=== PATIENT | female | born 1980 | race Caucasian/White ===

== ENCOUNTER 2021-08-28 22:13 | Emergency (ER) | payer OTHER, SELFPAY ==
[2021-08-28 22:23] VITALS: BP 165/94; PULSE 85; RESP 16; TEMP 36.8; O2SAT 100; BMI 36.5
[2021-08-28 22:46] LABS: Add Manual Diff / Slide Review NO; Basophils Absolute Auto 100 /uL (0-100); Basophils Percent Auto 0.7 % (0-2); Eosinophils Absolute Auto 600 /uL (0-450); Eosinophils Percent Auto 5.3 % (2-4); Hematocrit 38.9 % (36-46); Hemoglobin 13.2 g/dL (12.0-16.0); Lymphocytes Absolute Auto 4300 /uL (1100-4500); Lymphocytes Percent Auto 37.3 % (25-40); Mean Corpuscular Volume 85.3 fL (80-100); Monocytes Absolute Auto 500 /uL (0-900); Monocytes Percent Auto 4.1 % (3-14); Neutrophils Absolute Auto 6100 /uL (1500-7000); Neutrophils Percent Auto 52.6 % (50-75); Platelet Count 374 X10^3/uL (150-400); Red Blood Cell Count 4.56 X10^6/uL (4.0-5.2); Red Cell Distribution Width 13.6 % (11.6-14.8); White Blood Cell Count 11.6 X10^3/uL (4.5-11.0)
[2021-08-28 22:54] LABS: Alanine Aminotransferase 21 IU/L (<35); Albumin 4.4 g/dL (3.5-5.0); Albumin Globulin Ratio 1.3 (1.0-2.8); Alkaline Phosphatase 61 U/L (38-126); Aspartate Aminotransferase 20 IU/L (14-36); BUN Creatinine Ratio 18.8 (6-22); Bilirubin Total 0.3 mg/dL (0.2-1.3); Blood Urea Nitrogen 16 mg/dL (7-17); Calcium 9.5 mg/dL (8.4-10.2); Carbon Dioxide 24 mmol/L (22-32); Chloride 105 mmol/L (98-107); Estimated Glomerular Filt Rate > 60.0 mL/min (>60); Globulin 3.4 g/dL (1.7-4.1); Glucose 113 mg/dL (70-100); HEMOLYSIS < 15 (0-50); Lipase 70 U/L (23-300); Potassium 3.7 mmol/L (3.4-5.1); Sodium 137 mmol/L (137-145); Total Protein 7.8 g/dL (6.3-8.2)
[2021-08-29 00:30] VITALS: PULSE 77; RESP 16; O2SAT 98
--- NOTE | 2021-08-29 01:10 | ED.GENADULT ---
HPI - General Adult General Chief complaint: Abdominal Pain Stated complaint: abd pain getting worse Time Seen by Provider: 08/29/21 01:10 Source: patient Mode of arrival: Ambulatory History of Present Illness HPI narrative: 41-year-old woman with a history of significant menstrual pain and cramping with a history of small polyp noted on the left ovary a number of years ago has been having increasing pelvic pain over the last 3 weeks. Access to care has been challenging and next available OBGYN is apparently scheduling into November for appointments. Pain was severe enough today that she came to the emergency room for further evaluation. She notes that her allow last menstrual cycle was August 05 which was late for her, was more erratic and more painful than usual. She describes no fevers, cough, chills, nausea or vomiting. She has not had any vaginal discharge, hematuria, flank pain, dysuria or urinary frequency. No new sexual partners recently. Related Data Allergies Allergy/AdvReac Type Severity Reaction Status Date / Time No Known Drug Allergies Allergy Verified 08/28/21 22:29 Review of Systems Review of Systems Narrative: Remainder of complete review of systems is otherwise unremarkable except for that included in the HPI. Patient History Social History Smoking Status: Never smoker Smoking Status: Never smoker alcohol intake frequency: holidays/special occasions only Substance Use Type: does not use Exam Initial Vital Signs Initial Vital Signs: Vital Signs Temperature 98.2 F 08/28/21 22:23 Pulse Rate 85 08/28/21 22:23 Respiratory Rate 16 08/28/21 22:23 Blood Pressure 165/94 H 08/28/21 22:23 Pulse Oximetry 100 08/28/21 22:23 Course Orders Ordered: ED Orders 08/28/21 22:29 EKG-12 Lead Stat 08/28/21 22:33 Complete Blood Count AUTO DIFF Stat Comprehensive Metabolic Panel Stat Lipase Stat 08/29/21 01:05 Test Urine Stat 08/29/21 01:06 Urinalysis and Microscopic Stat 08/29/21 01:24 US pelvic complete Stat Vital Signs Vital signs: Vital Signs - 8 hr 08/28/21 22:23 08/29/21 00:30 Temperature 98.2 F Pulse Rate 85 77 Respiratory Rate 16 16 Blood Pressure 165/94 H Pulse Oximetry 100 98 Medical Decision Making Lab Data Result diagrams: 08/28/21 22:33 08/28/21 22:33 Labs: Lab Results 08/28/21 08/28/21 08/28/21 Range/Units 22:33 22:33 22:34 WBC 11.6 H (4.5-11.0) X10^3/uL RBC 4.56 (4.0-5.2) X10^6/uL Hgb 13.2 (12.0-16.0) g/dL Hct 38.9 (36-46) % MCV 85.3 (80-100) fL MCH 29.0 (26-34) PG MCHC 34.0 (30-36) % RDW 13.6 (11.6-14.8) % Plt Count 374 (150-400) X10^3/uL Neut % (Auto) 52.6 (50-75) % Lymph % (Auto) 37.3 (25-40) % Laurel % (Auto) 4.1 (3-14) % Eos % (Auto) 5.3 H (2-4) % Baso % (Auto) 0.7 (0-2) % Neut # (Auto) 6100 (7355-0656) /uL Lymph # (Auto) 4300 (0984-2318) /uL Laurel # (Auto) 500 (0-900) /uL Eos # (Auto) 600 H (0-450) /uL Baso # (Auto) 100 (0-100) /uL Sodium 137 (137-145) mmol/L Potassium 3.7 (3.4-5.1) mmol/L Chloride 105 (98-107) mmol/L Carbon Dioxide 24 (22-32) mmol/L BUN 16 (7-17) mg/dL Creatinine 0.85 (0.52-1.04) mg/dL Estimated GFR > 60.0 (>60) mL/min BUN/Creatinine Ratio 18.8 (6-22) Glucose 113 H (70-100) mg/dL Calcium 9.5 (8.4-10.2) mg/dL Total Bilirubin 0.3 (0.2-1.3) mg/dL AST 20 (14-36) IU/L ALT 21 (<35) IU/L Alkaline Phosphatase 61 (38-126) U/L Total Protein 7.8 (6.3-8.2) g/dL Albumin 4.4 (3.5-5.0) g/dL Globulin 3.4 (1.7-4.1) g/dL Albumin/Globulin Ratio 1.3 (1.0-2.8) Lipase 70 (23-300) U/L Urine Color Urine Appearance Urine pH (4.5-8.0) Ur Specific Adams (1.000-1.035) Urine Protein (Negative) Urine Glucose (UA) (Negative) g/dL Urine Ketones (NEGATIVE) Urine Occult Blood (Negative) Urine Nitrate (Negative) Urine Bilirubin (NEGATIVE) Urine Urobilinogen (0.2) E.U./dL Ur Leukocyte Esterase (NEGATIVE) Urine RBC (0-5/HPF) Urine WBC (0-5/HPF) Ur Squamous Epith Cells (0-5/HPF) Urine Bacteria (None) Ur Culture Indicated? Urine Test Negative (Negative) 08/28/21 Range/Units 22:34 WBC (4.5-11.0) X10^3/uL RBC (4.0-5.2) X10^6/uL Hgb (12.0-16.0) g/dL Hct (36-46) % MCV (80-100) fL MCH (26-34) PG MCHC (30-36) % RDW (11.6-14.8) % Plt Count (150-400) X10^3/uL Neut % (Auto) (50-75) % Lymph % (Auto) (25-40) % Laurel % (Auto) (3-14) % Eos % (Auto) (2-4) % Baso % (Auto) (0-2) % Neut # (Auto) (7757-7158) /uL Lymph # (Auto) (6785-1739) /uL Laurel # (Auto) (0-900) /uL Eos # (Auto) (0-450) /uL Baso # (Auto) (0-100) /uL Sodium (137-145) mmol/L Potassium (3.4-5.1) mmol/L Chloride (98-107) mmol/L Carbon Dioxide (22-32) mmol/L BUN (7-17) mg/dL Creatinine (0.52-1.04) mg/dL Estimated GFR (>60) mL/min BUN/Creatinine Ratio (6-22) Glucose (70-100) mg/dL Calcium (8.4-10.2) mg/dL Total Bilirubin (0.2-1.3) mg/dL AST (14-36) IU/L ALT (<35) IU/L Alkaline Phosphatase (38-126) U/L Total Protein (6.3-8.2) g/dL Albumin (3.5-5.0) g/dL Globulin (1.7-4.1) g/dL Albumin/Globulin Ratio (1.0-2.8) Lipase (23-300) U/L Urine Color Yellow Urine Appearance Clear Urine pH 5.0 (4.5-8.0) Ur Specific Adams 1.025 (1.000-1.035) Urine Protein Negative (Negative) Urine Glucose (UA) Negative (Negative) g/dL Urine Ketones Negative (NEGATIVE) Urine Occult Blood 2+ H (Negative) Urine Nitrate Negative (Negative) Urine Bilirubin Negative (NEGATIVE) Urine Urobilinogen 0.2 (0.2) E.U./dL Ur Leukocyte Esterase Negative (NEGATIVE) Urine RBC 1-5/hpf (0-5/HPF) Urine WBC None seen (0-5/HPF) Ur Squamous Epith Cells 1-5 /hpf (0-5/HPF) Urine Bacteria Few (2-10) H (None) Ur Culture Indicated? Cult not indicated Urine Test (Negative) Imaging Data pelvic ultrasound: Radiologist's Impression: Anteverted uterus, normal in size 9.5 x 4.3 x 5.2 cm\69 mm endometrium Heterogeneous uterus with several fibroids -right anterior intramural fibroid with scattered calcifications 2.4 cm -left posterior fibroids, 3.2 cm and 4.1 cm Complex septated cystic structure of the right adnexa/ovary at 6.6 cm. 3.5 cm lesion within this complex structure with low level echoes Normal left ovary, no free fluid No torsion Siva Valdes MD MDM Narrative Medical decision making narrative: 41-year-old woman presents with continued pelvic pain worse over the last 3 weeks. No evidence of . Clinical history is consistent with endometriosis and pelvic ultrasound shows a complex solid cystic 6.6 cm lesion in the right adnexa with multiple uterine fibroids. No torsion, no . Patient will be referred to gynecology on-call, Dr. Barker. Will need to call for follow-up appointment and will also talk with Dr. Jaramillo to know that she is aware of findings and need for follow-up appointment. Patient does want to get and has been passively trying over the last few months. She is a currently. She also has some questions about a small cyst that she is palpated in the left outer breast. Encouraged her to review all of this with the OBGYN with her follow-up appointment. Discharge Plan Departure Patient Disposition: Home Clinical Impression: Fibroid, uterine, Adnexal cyst, Pelvic pain Instructions: DI for Uterine Fibroids, DI for Ovarian Cyst Activity Restrictions/Additional Instructions: Thank you for coming in today There are a number of explanations for the discomfort you are experiencing in your pelvis. None of these are life-threatening. You are not currently . You do not have an ectopic You do have fibroids in your uterus as well as fairly large cyst involving the right ovary. You do need to see a stone processing machine operator in follow-up. The fact that you are still hoping for a needs to be discussed with a stone processing machine operator as well. ULISSES Dawn is on-call for the emergency room [facility]. She is with [facility] and their phone number is [phone]. Please call tomorrow and let them know that you are in the emergency department, had an abnormal pelvic ultrasound, have a referral that has already been initiated and see if an appointment can be arranged. I wish you the best Referrals: Ilsa Barker MD [Physician] -
[2021-08-29 01:19] LABS: Pregnancy Test Urine Negative (Negative)
--- NOTE | 2021-08-29 01:24 | DI.US.S_ITS ---
PROCEDURE: US PELVIC COMPLETE INDICATIONS: LEFT PELVIC PAIN TECHNIQUE: Real-time scanning was performed of the pelvic organs, with image documentation. Additional endovaginal scanning was necessary due to incomplete visualization of the adnexal and endometrial structures by transabdominal scanning. COMPARISON: None. FINDINGS: Uterus: Uterus is anteverted and normal in size at 9.5 x 4.3 x 5.2 cm. The myometrium is heterogeneous containing multiple uterine fibroids. The endometrium measures 9 mm combined thickness. There is a right anterior subserosal/intramural uterine fibroid measuring 2.4 x 1.8 x 1.8 cm. There is a left posterior subserosal fibroid measuring 3.2 x 2.8 x 4.1 cm. There is another left posterior subserosal uterine fibroid measuring 4.1 x 3.5 x 4.2 cm. There also 2 additional smaller subserosal/intramural fibroids in the right side of the uterus measuring 0.9 cm and 1.2 cm respectively. Ovaries: The right ovary contains a complex septated cystic structure measuring 6.5 x 6.4 x 6.6 cm. There is a smaller 3.5 cm lesion within this complex cystic structure containing low level internal echoes. There is normal Doppler waveforms and color flow within this structure. The left ovary measures 3.3 x 1.7 x 1.9 cm. The left ovary has a normal sonographic appearance. Other: No pathologic free abdominal or pelvic fluid. IMPRESSION: 1. Complex solid and cystic 6.6 cm lesion within the right ovary/adnexa without evidence for torsion. Recommend follow-up pelvic ultrasound in 6-8 weeks document stability versus resolution. 2. Normal appearance of the left ovary. 3. Multi fibroid uterus. No significant discrepancy with the news wire photo operator radiology preliminary report. We strive to produce accurate, complete, and clear reports of imaging services. To assist us in improving patient care, this report was composed using standard report templates and voice recognition software. Therefore, it may contain abnormal punctuation, insertions and/or omissions. Occasional wrong-word or sound-alike substitutions may occur. Though we review the report and make efforts to correct it, we do recommend that the report be read carefully in proper context to recognize any text inaccuracies. Dictated by: Imer Garcia M.D. on 08/29/2021 at 8:00 Approved by: Imer Garcia M.D. on 08/29/2021 at 8:07
[2021-08-29 01:38] LABS: Appearance Urine UA CLEAR; Bilirubin Urine UA NEGATIVE (NEGATIVE); Color Urine UA YELLOW; Glucose Urine UA NEGATIVE (Negative); Ketones Urine UA NEGATIVE (NEGATIVE); Leukocyte Esterase Urine UA NEGATIVE (NEGATIVE); Nitrite Urine UA NEGATIVE (Negative); Occult Blood Urine UA 2+ (Negative); Protein Urine UA NEGATIVE (Negative); Specific Gravity Urine UA 1.025 (1.000-1.035); Urobilinogen Urine UA 0.2 E.U./dL (0.2)
[2021-08-29 01:53] LABS: RBC Urine 1-5/HPF (0-5/HPF); WBC Urine None Seen (0-5/HPF)
[2021-08-29 01:54] LABS: Bacteria Urine Few (2-10); Culture Indicated Urine Cult Not Indicated; Squamous Epithelial Cell Urine 1-5 /HPF (0-5/HPF)
[2021-08-29 03:21] VITALS: PULSE 69; RESP 16
== END 2021-08-29 03:22 | disposition home or self-care (01) ==
PROVIDERS: Emergency Provider Emergency Medicine
DX: D25.1 Intramural leiomyoma of uterus (principal); D25.2 Subserosal leiomyoma of uterus; N83.201 Unspecified ovarian cyst, right side
CPT/HCPCS: 76830; 76856; 80053; 81001; 81025; 83690; 85025; 99283

== ENCOUNTER → 2021-09-23 15:18 | Outpatient (CLI) | payer OTHER, SELFPAY ==
[2021-09-23 16:07] LABS: Add Manual Diff / Slide Review NO; Basophils Absolute Auto 0 /uL (0-100); Basophils Percent Auto 0.3 % (0-2); Eosinophils Absolute Auto 100 /uL (0-450); Eosinophils Percent Auto 0.8 % (2-4); Hemoglobin 12.9 g/dL (12.0-16.0); Lymphocytes Absolute Auto 4200 /uL (1100-4500); Lymphocytes Percent Auto 32.8 % (25-40); Mean Corpuscular HGB Conc 33.9 % (30-36); Mean Corpuscular Hemoglobin 28.7 PG (26-34); Mean Corpuscular Volume 84.6 fL (80-100); Monocytes Absolute Auto 500 /uL (0-900); Neutrophils Absolute Auto 7900 /uL (1500-7000); Neutrophils Percent Auto 62.1 % (50-75); Platelet Count 386 X10^3/uL (150-400); Red Blood Cell Count 4.49 X10^6/uL (4.0-5.2); Red Cell Distribution Width 13.4 % (11.6-14.8); White Blood Cell Count 12.8 X10^3/uL (4.5-11.0)
[2021-09-23 16:41] LABS: TSH w/ Reflex to FT4 1.57 uIU/mL (0.47-4.68)
[2021-09-23 16:47] LABS: Cancer Antigen 125 39.6 U/mL (0-35)
[2021-09-24 07:57] LABS: Rubeola Measles IgG 59.2 AU/mL (Immune >16.4); Varicella IgG Antibody 742 index (Immune >165)
[2021-09-24 13:03] LABS: Mumps Virus IgG Antibody 70.5 AU/mL (Immune >10.9)
[2021-09-25 22:52] LABS: Rubella Antibody IgG 30.1 IU/mL (>15)
== END ==
PROVIDERS: Referring Provider Obstetrics & Gynecology; Visit Provider Obstetrics & Gynecology
DX: N83.8 Other noninflammatory disorders of ovary, fallopian tube and broad ligament (principal); Z31.69 Encounter for other general counseling and advice on procreation
CPT/HCPCS: 36415; 84443; 85025; 86304; 86735; 86762; 86765; 86787

== ENCOUNTER → 2021-10-06 12:48 | Outpatient (CLI) | payer OTHER, SELFPAY ==
--- NOTE | 2021-10-06 | DI.MG.S_ITS ---
BILATERAL DIGITAL SCREENING MAMMOGRAM 3D/2D WITH CAD: 10/06/2021 CLINICAL: Routine screening. Baseline exam by default. No prior exams were available for comparison. The tissue of both breasts is heterogeneously dense. This may lower the sensitivity of mammography. Current study was also evaluated with a Computer Aided Detection (CAD) system. There is a biopsy clip in the right breast. No significant masses, calcifications, or other findings are seen in either breast. IMPRESSION: NEGATIVE There is no mammographic evidence of malignancy. A 1 year screening mammogram is recommended. This exam was interpreted at Station ID: [id number]. NOTE: For mammograms, a report in lay terms will be sent to the patient. Approximately 15% of breast malignancies will not be visualized mammographically. In the management of a palpable breast mass, a negative mammogram must not discourage biopsy of a clinically suspicious lesion. Electronically Signed By: Imer farrell/jackelyn:10/06/2021 13:37:54 letter sent: Normal Exam ACR BI-RADS Category 1: Negative [id number]
== END ==
PROVIDERS: PCP Internal Medicine; Referring Provider Internal Medicine; Visit Provider Internal Medicine
DX: Z12.31 Encounter for screening mammogram for malignant neoplasm of breast (principal)
CPT/HCPCS: 77063; 77067

== ENCOUNTER → 2021-10-30 15:51 | Outpatient (CLI) | payer OTHER, SELFPAY ==
[2021-10-30 18:38] LABS: Cancer Antigen 125 35.9 U/mL (0-35)
[2021-11-02 09:47] LABS: Human Epididymis Prot 4 50.7 pmol/L (0.0-61.2)
== END ==
PROVIDERS: PCP Internal Medicine; Referring Provider Obstetrics & Gynecology; Visit Provider Obstetrics & Gynecology
DX: N83.8 Other noninflammatory disorders of ovary, fallopian tube and broad ligament (principal)
CPT/HCPCS: 36415; 86304; 86305

== ENCOUNTER → 2022-01-07 15:21 | Outpatient (CLI) | payer OTHER, SELFPAY ==
--- NOTE | 2022-01-07 15:25 | DI.US.S_ITS ---
PROCEDURE: US PELVIC COMPLETE INDICATIONS: ADNEXAL MASS TECHNIQUE: Real-time scanning was performed of the pelvic organs, with image documentation. Additional endovaginal scanning was necessary due to incomplete visualization of the adnexal and endometrial structures by transabdominal scanning. COMPARISON: [facility], US, US PELVIC COMPLETE, 09/23/2021, 14:57. [facility], US, US PELVIC COMPLETE, 10/30/2021, 16:52. FINDINGS: Uterus: Uterus is anteverted and enlarged in size at 10.7 x 5.1 x 7.6 cm. The myometrium is heterogeneous. The endometrium measures 4.5 mm combined thickness. 2 subserosal fibroids are present, largest measuring 4.5 cm and there is a 2.2 cm intramural fibroid. Ovaries: Right ovary measures 6.0 x 5.3 x 6.6 cm and the left 5.5 x 4.4 x 4.7 cm. Simple cyst involves the right ovary measuring 4.3 x 2.9 x 5.8 cm. Complex right ovarian cyst is also seen with fine low level internal echoes measuring 3.3 x 2.0 x 2.6 cm. There are 2 simple cyst involving the left ovary, largest measuring 3.7 x 2.5 x 1.3 cm. Complex left ovarian cyst containing fine low level internal echoes measuring 3.1 x 1.8 x 2.4 cm. Other: No pathologic free abdominal or pelvic fluid. IMPRESSION: 1. Three uterine fibroids, largest measuring up to 4.5 cm. 2. Bilateral simple and complex ovarian cysts as described and measured above. Differential for the complex cysts would include endometriomas or hemorrhagic cysts, less likely neoplasm. Continued imaging follow-up can be obtained to assess for interval change or resolution, consider an interval of 6-8 weeks or at clinical discretion. We strive to produce accurate, complete, and clear reports of imaging services. To assist us in improving patient care, this report was composed using standard report templates and voice recognition software. Therefore, it may contain abnormal punctuation, insertions and/or omissions. Occasional wrong-word or sound-alike substitutions may occur. Though we review the report and make efforts to correct it, we do recommend that the report be read carefully in proper context to recognize any text inaccuracies. Dictated by: Ramón RAMIREZ Interpreted: Branden Yepez MD on 01/07/2022 at 16:37 Approved by: Branden Yepez M.D. on 01/07/2022 at 20:09
== END ==
PROVIDERS: PCP Internal Medicine; Referring Provider Obstetrics & Gynecology; Visit Provider Obstetrics & Gynecology
DX: D25.1 Intramural leiomyoma of uterus (principal); D25.2 Subserosal leiomyoma of uterus; N83.291 Other ovarian cyst, right side; N83.292 Other ovarian cyst, left side; N94.89 Other specified conditions associated with female genital organs and menstrual cycle; R19.00 Intra-abdominal and pelvic swelling, mass and lump, unspecified site; R97.1 Elevated cancer antigen 125 [CA 125]
CPT/HCPCS: 76830; 76856

== ENCOUNTER → 2022-01-10 10:15 | Outpatient (CLI) | payer OTHER, SELFPAY ==
[2022-01-10 12:11] LABS: Cancer Antigen 125 73.6 U/mL (0-35)
== END ==
PROVIDERS: PCP Internal Medicine; Referring Provider Obstetrics & Gynecology; Visit Provider Obstetrics & Gynecology
DX: R97.1 Elevated cancer antigen 125 [CA 125] (principal)
CPT/HCPCS: 36415; 86304

== ENCOUNTER → 2022-04-08 06:54 | Outpatient (CLI) | payer OTHER, SELFPAY ==
--- NOTE | 2022-04-08 | DI.US.S_ITS ---
PROCEDURE: US PELVIC COMPLETE INDICATIONS: ADNEXAL MASS TECHNIQUE: Real-time scanning was performed of the pelvic organs, with image documentation. Additional endovaginal scanning was necessary due to incomplete visualization of the adnexal and endometrial structures by transabdominal scanning. COMPARISON: [facility], US, US PELVIC COMPLETE, 01/07/2022, 15:28. FINDINGS: Uterus: 8.8 x 5.4 by low 8.5 centimeters. The endometrium is within normal limits for age measuring 11 millimeters. Numerous fibroids are present, largest measuring up to 3 centimeters. These fibroids mostly intramural. Ovaries: The right ovarian volume is 158 cc. The left ovarian volume is 32 cc. Multiple simple and minimally complex cysts are present, measuring up to 5.9 centimeters in the right ovary and 4.4 centimeters in the left ovary. Complex left ovarian cyst seen previously is not definitely visualized today. Color and spectral doppler: flows are documented Other: No pathologic fluid. IMPRESSION: Multiple uterine fibroids, mostly intramural. Multiple simple and minimally complex ovarian cysts as above. Absence of the previously seen complicated cyst on previous ultrasound and changing sizes are reassuring that that these are probably not fixed masses/cystic neoplasms. However, given large-size today, follow-up ultrasound is recommended again in 8-12 weeks. Alternatively, MRI could be pursued. We strive to produce accurate, complete, and clear reports of imaging services. To assist us in improving patient care, this report was composed using standard report templates and voice recognition software. Therefore, it may contain abnormal punctuation, insertions and/or omissions. Occasional wrong-word or sound-alike substitutions may occur. Though we review the report and make efforts to correct it, we do recommend that the report be read carefully in proper context to recognize any text inaccuracies. Dictated by: Josh Metzger M.D. on 04/08/2022 at 15:16 Approved by: Josh Metzger M.D. on 04/08/2022 at 15:23
[2022-04-08 09:01] LABS: Cancer Antigen 125 35.9 U/mL (0-35)
== END ==
PROVIDERS: PCP Internal Medicine; Referring Provider Obstetrics & Gynecology; Visit Provider Obstetrics & Gynecology
DX: D25.1 Intramural leiomyoma of uterus (principal); N94.89 Other specified conditions associated with female genital organs and menstrual cycle; R19.00 Intra-abdominal and pelvic swelling, mass and lump, unspecified site; R97.1 Elevated cancer antigen 125 [CA 125]; N83.292 Other ovarian cyst, left side; N83.291 Other ovarian cyst, right side
CPT/HCPCS: 36415; 76830; 76856; 86304; 93975

== ENCOUNTER → 2022-08-04 14:09 | Outpatient (CLI) | payer OTHER, SELFPAY ==
--- NOTE | 2022-08-04 | DI.US.S_ITS ---
PROCEDURE: US PELVIC COMPLETE INDICATIONS: DUB TECHNIQUE: Real-time scanning was performed of the pelvic organs, with image documentation. Additional endovaginal scanning was necessary due to incomplete visualization of the adnexal and endometrial structures by transabdominal scanning. COMPARISON: [facility], US, US PELVIC COMPLETE, 04/08/2022, 7:04. FINDINGS: Uterus: Uterus is anteverted and normal in size at 12.0 x 5.4 x 6.5 cm. The myometrium is heterogeneous, containing numerous intramural fibroids. The largest fibroid measures 3.5 cm. The endometrium measures 7 mm combined thickness. Ovaries: The right ovary measures 7.1 x 5.1 x 6.2 cm, with a calculated ovarian volume of 118 cc. The left ovary measures 5.4 x 5.7 x 6.1 cm, with a calculated ovarian volume of 89 cc. The ovaries have a normal sonographic appearance. Bilateral ovarian cystic lesions are again seen. The dominant right ovarian cyst measures 5.7 x 4.0 x 4.0 cm, without internal complexity. There is a cystic lesion with low-level internal echogenicity measuring 3.2 x 2.1 x 2.8 cm. Additionally, there is a left ovarian cystic lesion with thin internal septation measuring 5.1 x 4.3 x 4.5 cm; this previously measured 4.4 x 2.7 by 2.9 cm. Other: No pathologic free abdominal or pelvic fluid. IMPRESSION: 1. Slight interval growth of the left ovarian cystic lesion with thin internal septation, still likely benign. However, there has been interval development of a right ovarian cystic lesion with low-level internal echogenicity measuring 3.2 x 2.1 x 2.8 cm. Given pelvic pain and presence of new cyst, recommend additional follow-up in 6-12 weeks to ensure resolution. 2. Myomatous uterus. We strive to produce accurate, complete, and clear reports of imaging services. To assist us in improving patient care, this report was composed using standard report templates and voice recognition software. Therefore, it may contain abnormal punctuation, insertions and/or omissions. Occasional wrong-word or sound-alike substitutions may occur. Though we review the report and make efforts to correct it, we do recommend that the report be read carefully in proper context to recognize any text inaccuracies. Dictated by: Gregorio Chilel M.D. on 08/04/2022 at 16:07 Approved by: Gregorio Chilel M.D. on 08/04/2022 at 16:13
== END ==
PROVIDERS: PCP Internal Medicine; Referring Provider Obstetrics & Gynecology; Visit Provider Obstetrics & Gynecology
DX: D25.1 Intramural leiomyoma of uterus (principal); N94.89 Other specified conditions associated with female genital organs and menstrual cycle; R19.00 Intra-abdominal and pelvic swelling, mass and lump, unspecified site; R97.1 Elevated cancer antigen 125 [CA 125]
CPT/HCPCS: 76830; 76856; 93976

== ENCOUNTER → 2022-08-06 14:27 | Outpatient (CLI) | payer OTHER, SELFPAY | PROVIDERS: PCP Internal Medicine; Referring Provider Obstetrics & Gynecology; Visit Provider Obstetrics & Gynecology | DX: R97.1 Elevated cancer antigen 125 [CA 125] (principal); N94.89 Other specified conditions associated with female genital organs and menstrual cycle; R19.00 Intra-abdominal and pelvic swelling, mass and lump, unspecified site | CPT/HCPCS: 36415; 86304 ==

== ENCOUNTER → 2022-10-30 14:20 | Outpatient (CLI) | payer OTHER, SELFPAY ==
[2022-10-30 15:25] LABS: Cancer Antigen 125 50.6 U/mL (0-35)
== END ==
PROVIDERS: PCP Internal Medicine; Referring Provider Obstetrics & Gynecology; Visit Provider Obstetrics & Gynecology
DX: R19.00 Intra-abdominal and pelvic swelling, mass and lump, unspecified site (principal); R97.1 Elevated cancer antigen 125 [CA 125]
CPT/HCPCS: 36415; 86304

== ENCOUNTER 2022-11-22 20:30 | Emergency (ER) | payer OTHER, SELFPAY ==
[2022-11-22 20:39] VITALS: BP 172/106; PULSE 100; RESP 20; TEMP 37; O2SAT 99; BMI 35.4
[2022-11-22 21:45] LABS: Bacteria Urine Few (2-10); Culture Indicated Urine Cult Not Indicated; RBC Urine >100/HPF (0-5/HPF); Squamous Epithelial Cell Urine 0-1 /HPF (0-5/HPF); WBC Urine 0-1/HPF (0-5/HPF)
--- NOTE | 2022-11-23 00:06 | PC.NURSE ---
Attempted to find patient to bring back to a room and was unable to locate.
== END 2022-11-23 00:07 | disposition left against medical advice (07) ==
PROVIDERS: Emergency Provider Emergency Medicine; PCP Internal Medicine
DX: R10.9 Unspecified abdominal pain (principal)
CPT/HCPCS: 81003; 81015; 81025; 99282

== ENCOUNTER → 2022-12-02 13:18 | Outpatient (CLI) | payer OTHER, SELFPAY ==
--- NOTE | 2022-12-02 | DI.US.S_ITS ---
PROCEDURE: US PELVIC COMPLETE INDICATIONS: PELVIC MASS TECHNIQUE: Real-time scanning was performed of the pelvic organs, with image documentation. Additional endovaginal scanning was necessary due to incomplete visualization of the adnexal and endometrial structures by transabdominal scanning. COMPARISON: [facility], US, US PELVIC COMPLETE, 08/04/2022, 14:26. FINDINGS: Uterus: Uterus is anteverted and normal in size at 12.5 x 6.1 x 5.7 cm. The myometrium is homogeneous. The endometrium measures 7 mm combined thickness. Several uterine fibroids. For example: Mid fundal subserosal 3.8 cm. Right anterior intramural 2.2 cm. Mid posterior intramural 2.6 cm. Ovaries: The right ovary measures 7.5 x 5.7 x 4.2 cm, with a calculated ovarian volume of 93 cc. -Right simple cyst measuring 5.4 cm. -Right heterogeneous cyst measuring 3.9 x 2.7 x 2.4 cm, (previously measured 3.2 x 2.8 x 2.1 cm on 08/04/2022). No internal vascularity. The left ovary measures 8.4 x 7.9 x 7.3 cm, with a calculated ovarian volume of 252 cc. -Left ovarian septated cyst measuring 8.7 x 7.7 x 6.7 cm, (previously 5.1 x 4.5 x 4.3 cm). This is a thin septation. No internal vascularity. Less than 12 follicles can be seen in each ovary. No adnexal masses are seen. Other: No pathologic free abdominal or pelvic fluid. IMPRESSION: 1. Complex right ovarian cyst measuring 3.9 cm, slightly increased in size. 2. Large ovarian cyst with a thin septation measuring 8.7 cm, increased. 3. Several uterine fibroids. Recommend gynecological consultation. Pelvic MRI with IV contrast would be helpful for further characterization. We strive to produce accurate, complete, and clear reports of imaging services. To assist us in improving patient care, this report was composed using standard report templates and voice recognition software. Therefore, it may contain abnormal punctuation, insertions and/or omissions. Occasional wrong-word or sound-alike substitutions may occur. Though we review the report and make efforts to correct it, we do recommend that the report be read carefully in proper context to recognize any text inaccuracies. Dictated by: Brian Mckeon M.D. on 12/02/2022 at 19:38 Approved by: Brian Mckeon M.D. on 12/02/2022 at 19:49
== END ==
PROVIDERS: PCP Internal Medicine; Referring Provider Obstetrics & Gynecology; Visit Provider Obstetrics & Gynecology
DX: D25.1 Intramural leiomyoma of uterus (principal); D25.2 Subserosal leiomyoma of uterus; N83.291 Other ovarian cyst, right side; R19.00 Intra-abdominal and pelvic swelling, mass and lump, unspecified site; M54.16 Radiculopathy, lumbar region
CPT/HCPCS: 76830; 76856